=== PATIENT | male | born 1965 | race African-American/Black ===

== ENCOUNTER 2022-11-07 23:31 | Emergency (ER) | payer OTHER ==
[~2022-11-07] VITALS: Ht 175.3 cm; Wt 87.8 kg
[2022-11-08] MEDS ORDERED: IBUP-2029 PO (02:31)
[2022-11-08] MEDS ORDERED: LIDOCAINE HCL/EPINEPHRINE 1%-EPI 1:100,000 20 ML VIAL INFIL ONE (03:00)
[2022-11-08] MEDS ORDERED: BACITRACIN ZINC OINT UDPKT TOP ONE (03:00)
[2022-11-08] MEDS ORDERED: LIDOCAINE HCL/EPINEPHRINE 1%-EPI 1:100,000 10 ML VIAL INFIL NR (03:15)
[2022-11-08 04:50] VITALS: BP 129/82
== END 2022-11-08 04:56 | disposition home or self-care (01) ==
LOC: ER 23:31
DX: S81.811A Laceration without foreign body, right lower leg, initial encounter (principal); X58.XXXA Exposure to other specified factors, initial encounter; Y93.89 Activity, other specified; Y92.89 Other specified places as the place of occurrence of the external cause; Y99.8 Other external cause status
CPT/HCPCS: 99282; J3490; Z7610